=== PATIENT | female | born 1960 | race African-American/Black ===

== ENCOUNTER 2017-04-13 12:51 | Outpatient (CLI) | payer BC | END 2017-04-13 12:52 | disposition home or self-care (01) | LOC: BICMAMMO 12:51 | PROVIDERS: ATTEND Specialist | DX: Z08 Encounter for follow-up examination after completed treatment for malignant neoplasm (principal); Z85.3 Personal history of malignant neoplasm of breast | CPT/HCPCS: G0279 ==

== ENCOUNTER 2017-06-29 15:19 | Outpatient (CLI) | payer BC | END 2017-06-29 15:20 | disposition home or self-care (01) | LOC: BICMAMMO 15:19 | PROVIDERS: ATTEND Internal Medicine Hematology & Oncology | DX: Z78.0 Asymptomatic menopausal state (principal); C50.412 Malignant neoplasm of upper-outer quadrant of left female breast | CPT/HCPCS: 77080 ==

== ENCOUNTER 2018-04-19 14:43 | Outpatient (CLI) | payer BC | END 2018-04-19 14:44 | disposition home or self-care (01) | LOC: BICMAMMO 14:43 | PROVIDERS: ATTEND Specialist | DX: Z08 Encounter for follow-up examination after completed treatment for malignant neoplasm (principal); R92.1 Mammographic calcification found on diagnostic imaging of breast; Z85.3 Personal history of malignant neoplasm of breast | CPT/HCPCS: 77066; G0279 ==

== ENCOUNTER 2018-09-04 07:23 | Emergency (ER) | payer BC ==
[2018-09-04 07:54] LABS: #Eosinphils 0.1 thou/uL (0.0-0.7); #Lymphocytes 1.9 thou/uL (1.20-3.40); #Monocytes 1.3 thou/uL (0.11-0.59); #Neutrophils 9.5 thou/uL (1.40-6.50); %Basophils 0.1 % (0.0-1.0); %Eosinophils 0.7 % (0.0-10.0); %Lymphocytes 14.6 % (21.0-51.0); %Monocytes 10.1 % (0.0-10.0); %Neutrophils 74.5 % (42.0-75.0); Hemoglobin 13.3 g/dL (12.0-16.0); Mean Corpuscular HGB CONC 32.6 g/dL (32.0-36.0); Mean Corpuscular Hemoglobin 27.2 pg (27.0-31.0); Mean Corpuscular Volume 83.3 fL (78.0-98.0); Mean Platelet Volume 8.5 fL (7.4-10.4); Platelet Count 189 thou/uL (130-400); RBC Distribution Width 12.5 % (11.5-14.5); Red Blood Cell (RBC) Count 4.88 mill/uL (4.20-5.40); White Blood Cell (WBC) Count 12.7 thou/uL (4.8-10.8)
[2018-09-04 08:14] LABS: ALT (SGPT) 28 U/L (8-55); AST (SGOT) 42 U/L (5-34); Albumin 3.8 g/dL (3.5-5.0); Alkaline Phosphatase 103 U/L (40-150); Anion Gap 13 mmol/L (10-20); BUN (Urea Nitrogen) 19 mg/dL (9.8-20.1); Bilirubin, Total 2.2 mg/dL (0.2-1.2); Calc. Creatinine Clearance 0 mL/min (70-130); Calcium 9.1 mg/dL (7.8-10.44); Carbon Dioxide 26 mmol/L (22-29); Chloride 101 mmol/L (98-107); Estimated GFR-MDRD 60; Globulin 3.1 g/dL (2.4-3.5); Glucose 318 mg/dL (70-105); Potassium 3.7 mmol/L (3.5-5.1); Protein, Total 6.9 g/dL (6.0-8.3); Sodium 136 mmol/L (136-145)
== END 2018-09-04 09:48 | disposition home or self-care (01) ==
LOC: ERS 07:23
DX: L02.211 Cutaneous abscess of abdominal wall (principal); E11.9 Type 2 diabetes mellitus without complications; I10 Essential (primary) hypertension; F17.210 Nicotine dependence, cigarettes, uncomplicated; Z79.899 Other long term (current) drug therapy; Z79.84 Long term (current) use of oral hypoglycemic drugs
CPT/HCPCS: 36415; 80053; 85025

== ENCOUNTER 2019-07-21 06:52 | Outpatient (CLI) | payer BC ==
--- NOTE | 2019-07-21 09:19 | CT ---
CT ABDOMEN AND PELVIS WITH IV CONTRAST: Oral contrast was administered. INDICATION: Reason for exam is stated as colon cancer. Technologist states there is also a history of breast canc er in this patient with left mastectomy. Surgeries include appendectomy and colon resection. FINDINGS: Images through the lung bases show no evidence of infiltrate. There is some linear stranding seen jennifer aterally, more prominent on the right. There is mild hepatomegaly. The liver measures up to 23 cm craniocaudal dimension. The liver is homog eneous with mild fatty infiltration. Spleen is unremarkable. Pancreas is unremarkable. Stomach and duodenum are unremarkable. Adrenal glands normal. Small bowel loops normal caliber. Evidence of partial right colectomy. Visualized colon unremarkable. Scattered diverticula in the left colon with mild diverticulosis of the sigmoid. The kidneys are unremarkable. There is a small cyst from inferior pole of the right kidney measuring 1.3 cm. Aorta is normal caliber. No adenopathy. Images through the pelvis show mildly distended urinary bladder, which is unremarkable. Soft tissue d ensity to the left of midline is presumably a small uterus. No free fluid. The osseous structures are unremarkable. Degenerative changes in the spine. IMPRESSION: No acute process. Nonacute findings as described above. POS: AGW
[2019-07-21] MEDS ORDERED: Iopamidol 370 76% 100 ML VIAL ONE (09:54)
== END 2019-07-21 06:53 | disposition home or self-care (01) ==
LOC: CT 06:52
PROVIDERS: ATTEND Family Medicine
DX: R10.9 Unspecified abdominal pain (principal); R16.0 Hepatomegaly, not elsewhere classified; K57.30 Diverticulosis of large intestine without perforation or abscess without bleeding; N28.1 Cyst of kidney, acquired; N32.89 Other specified disorders of bladder; M47.819 Spondylosis without myelopathy or radiculopathy, site unspecified; Z90.49 Acquired absence of other specified parts of digestive tract; Z85.038 Personal history of other malignant neoplasm of large intestine
CPT/HCPCS: 74177; Q9967

== ENCOUNTER 2020-04-24 14:22 | Outpatient (CLI) | payer OTHER | END 2020-04-24 14:23 | disposition home or self-care (01) | LOC: DTY/OP 14:22 | PROVIDERS: ATTEND Specialist | DX: Z01.818 Encounter for other preprocedural examination (principal); E66.01 Morbid (severe) obesity due to excess calories | CPT/HCPCS: 97802 ==

== ENCOUNTER 2020-04-26 09:30 | Outpatient (CLI) | payer BC ==
--- NOTE | 2020-04-26 11:28 | RAD ---
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 A double contrast upper GI was performed. The distal esophagus is unremarkable. Contrast media traverses the gastroesophageal junction without delay. No gastroesophageal reflux was seen on this exam. No evidence for hiatal hernia. The stomach demonstrates a normal rugal fold pattern. There is normal appearance of the gastric fundus, gastric a ntrum, the duodenal bulb, and the duodenojejunal junction. The patient ingested a barium tablet which traverses the gastroesophageal junction without delay. IMPRESSION: Unremarkable upper GI examination.
== END 2020-04-26 09:31 | disposition home or self-care (01) ==
LOC: RAD 09:30
PROVIDERS: ATTEND Specialist
DX: E66.01 Morbid (severe) obesity due to excess calories (principal)
CPT/HCPCS: 74246

== ENCOUNTER 2020-12-18 16:05 | Outpatient (CLI) | payer BC | END 2020-12-18 16:06 | disposition home or self-care (01) | LOC: BICMAMMO 16:05 | PROVIDERS: ATTEND Family Medicine | DX: Z12.31 Encounter for screening mammogram for malignant neoplasm of breast (principal); Z85.3 Personal history of malignant neoplasm of breast; Z90.12 Acquired absence of left breast and nipple | CPT/HCPCS: 77063; 77067 ==

== ENCOUNTER 2020-12-28 06:56 | Emergency (ER) | payer BC ==
[2020-12-28 07:35] LABS: Bilirubin Negative (Negative); Blood, Urine Trace (Negative); Clarity Turbid (Clear); Glucose, Urine (Dipstick) Greater than 1000 mg/dL (Negative); Ketone, Urine Negative (Negative); Leukocyte 500 Leu/uL (Negative); Nitrite Negative (Negative); Protein, Urine (Dipstick) 30 mg/dL (Neg-Trace); Squamous Epithelial 0-3 HPF (0-3); Urobilinogen Normal mg/dL (Less than 2)
[2020-12-28 07:43] LABS: Bacteria/HPF 1+ HPF (None Seen)
== END 2020-12-28 08:00 | disposition home or self-care (01) ==
LOC: ERS 06:56
DX: N30.00 Acute cystitis without hematuria (principal); E11.9 Type 2 diabetes mellitus without complications; I10 Essential (primary) hypertension; F17.210 Nicotine dependence, cigarettes, uncomplicated; Z79.899 Other long term (current) drug therapy
CPT/HCPCS: 81003; 81015; 87086; 99283

== ENCOUNTER 2021-07-06 09:00 | Emergency (ER) | payer BC ==
[2021-07-06] MEDS ORDERED: Ketorolac Tromethamine 30 MG/ML VIAL ONE (09:33)
== END 2021-07-06 09:56 | disposition home or self-care (01) ==
LOC: ERS 09:00
DX: M46.1 Sacroiliitis, not elsewhere classified (principal); E11.9 Type 2 diabetes mellitus without complications; I10 Essential (primary) hypertension; F17.210 Nicotine dependence, cigarettes, uncomplicated
CPT/HCPCS: 96372; 99283; J1885

== ENCOUNTER 2021-08-14 12:57 | Outpatient (CLI) | payer BC | END 2021-08-14 12:58 | disposition home or self-care (01) | LOC: RAD 12:57 | PROVIDERS: ATTEND Family Medicine | DX: M47.26 Other spondylosis with radiculopathy, lumbar region (principal) | CPT/HCPCS: 72100 ==

== ENCOUNTER 2022-01-08 12:24 | Outpatient (CLI) | payer BC | END 2022-01-08 12:25 | disposition home or self-care (01) | LOC: BICMAMMO 12:24 | PROVIDERS: ATTEND Family Medicine | DX: Z12.31 Encounter for screening mammogram for malignant neoplasm of breast (principal); Z85.3 Personal history of malignant neoplasm of breast; Z90.12 Acquired absence of left breast and nipple | CPT/HCPCS: 77063; 77067 ==

== ENCOUNTER 2023-04-06 08:06 | Outpatient (CLI) | payer OTHER | END 2023-04-06 08:07 | disposition home or self-care (01) | LOC: BICMAMMO 08:06 | PROVIDERS: ATTEND Family Medicine | DX: Z12.31 Encounter for screening mammogram for malignant neoplasm of breast (principal); Z85.3 Personal history of malignant neoplasm of breast; Z90.12 Acquired absence of left breast and nipple | CPT/HCPCS: 77063; 77067 ==

== ENCOUNTER 2024-04-21 07:06 | Emergency (ER) | payer OTHER, SELFPAY ==
[2024-04-21] MEDS ORDERED: predniSONE 20 MG TAB ONE (07:38)
== END 2024-04-21 07:58 | disposition home or self-care (01) ==
LOC: ERS 07:06
DX: B34.9 Viral infection, unspecified (principal); I10 Essential (primary) hypertension; E11.9 Type 2 diabetes mellitus without complications; F17.210 Nicotine dependence, cigarettes, uncomplicated; Z79.899 Other long term (current) drug therapy
CPT/HCPCS: 71046; 87428; J7512